=== PATIENT | male | born 1960 | race Caucasian/White ===

== ENCOUNTER 2022-05-04 23:18 | Observation (INO) | payer BC ==
[2022-05-05 00:22] VITALS: BMI 24.9
[2022-05-05] MEDS ORDERED: Nitroglycerin 0.4 MG TAB (25 Tab Bottle) SL PRN (00:50)
[2022-05-05] MEDS ORDERED: Ondansetron PF 4 MG/2 ML Vial IVP PRN (00:50)
[2022-05-05] MEDS ORDERED: Ondansetron ODT 4 MG TAB PO PRN (00:50)
[2022-05-05] MEDS ORDERED: Acetaminophen 325 MG TAB PO PRN (00:50)
[2022-05-05] MEDS ORDERED: Multivit, Therapeutic 1 TAB PO SCH (01:00)
[2022-05-05] MEDS ORDERED: Folic Acid 1 MG TAB PO SCH (01:00)
[2022-05-05] MEDS ORDERED: Thiamine 100 MG TAB PO SCH ×2 (01:15→21:00)
[2022-05-05 02:13] LABS: Troponin I 0.014 ng/mL (< 0.028)
[2022-05-05 03:22] LABS: Cardiac Risk 2.1 (Less than 4.5)
[2022-05-05 05:22] LABS: Troponin I 0.013 ng/mL (< 0.028)
[2022-05-05] MEDS ORDERED: ADENOSINE 60 MG/20 ML VIAL ONE (07:29)
[2022-05-05] MEDS ORDERED: COLESEVELAM HCL 625 MG PO SCH (09:00)
[2022-05-05] MEDS: Allopurinol 300 MG TAB PO SCH (12:18)
[2022-05-05] MEDS: Folic Acid 1 MG TAB PO SCH (12:18)
[2022-05-05] MEDS: Multivit, Therapeutic 1 TAB PO SCH (12:18)
[2022-05-05] MEDS: Tamsulosin HCl 0.4 MG CAP PO SCH (12:18)
[2022-05-05] MEDS: Lisinopril 20 MG TAB PO SCH (12:18)
[2022-05-05] MEDS ORDERED: Communication Order-Pharmacy FS SCH (17:45)
[2022-05-06] MEDS ORDERED: Iopamidol 370 76% 100 ML VIAL ONE (07:31)
[2022-05-06 07:38] LABS: Hemoglobin 14.4 g/dL (14.0-18.0); Mean Corpuscular HGB CONC 34.8 g/dL (32.0-36.0); Mean Corpuscular Hemoglobin 34.3 pg (27.0-31.0); Mean Corpuscular Volume 98.6 fL (78.0-98.0); Platelet Count 128 thou/uL (130-400); Red Blood Cell (RBC) Count 4.19 mill/uL (4.70-6.10); White Blood Cell (WBC) Count 5.3 thou/uL (4.8-10.8)
[2022-05-06] MEDS: Lisinopril 20 MG TAB PO SCH (07:45)
[2022-05-06] MEDS: Multivit, Therapeutic 1 TAB PO SCH (07:47)
[2022-05-06] MEDS: Folic Acid 1 MG TAB PO SCH (07:47)
[2022-05-06] MEDS: Tamsulosin HCl 0.4 MG CAP PO SCH (07:47)
[2022-05-06] MEDS: Allopurinol 300 MG TAB PO SCH (07:48)
[2022-05-06] MEDS ORDERED: Verapamil 5 MG/2 ML VIAL ONE (07:50)
[2022-05-06] MEDS ORDERED: Fentanyl 100 MCG/2 ML VIAL ONE (07:50)
[2022-05-06] MEDS ORDERED: Nitroglycerin 100MG/250ML BOT 250 ML ONE (07:50)
[2022-05-06] MEDS ORDERED: Midazolam HCl 2 mg/2 ml Vial ONE (07:50)
[2022-05-06] MEDS ORDERED: Adenosine 6 MG/2 ML VIAL ONE (07:50)
[2022-05-06] MEDS ORDERED: Lidocaine 1% PF 5 ML VIAL ONE (07:50)
[2022-05-06] MEDS ORDERED: Heparin 10,000 UNITS/ 10 ML VIAL ONE (07:51)
[2022-05-06 07:56] LABS: Anion Gap 14 mmol/L (10-20); BUN (Urea Nitrogen) 6 mg/dL (8.4-25.7); Calc. Creatinine Clearance 125 mL/min (70-130); Carbon Dioxide 27 mmol/L (22-29); Chloride 99 mmol/L (98-107); Estimated GFR 105; Glucose 86 mg/dL (70-105); Potassium 3.9 mmol/L (3.5-5.1); Sodium 136 mmol/L (136-145)
[2022-05-06] MEDS ORDERED: Carvedilol 25 MG TAB PO SCH (08:00)
[2022-05-06] MEDS ORDERED: Acetaminophen/Codeine 30-300mg Tablet PO PRN ×2 (09:17)
[2022-05-06] MEDS ORDERED: Nitroglycerin 0.4 MG TAB (25 Tab Bottle) SL PRN (09:17)
[2022-05-06] MEDS ORDERED: Sodium Chloride 0.9% 200 ML IV PRN (09:17)
[2022-05-06] MEDS ORDERED: Sodium Chloride 0.9% 1,000 ML IV SCH (09:30)
[2022-05-06 12:33] VITALS: BP 124/79; TEMP 98.4
== END 2022-05-06 16:27 | disposition home or self-care (01) ==
LOC: 2SW 05-05 00:04
PROVIDERS: ADMIT Student in an Organized Health Care Education/Training Program; ATTEND Student in an Organized Health Care Education/Training Program
PROC: 4A023N7 Measurement of Cardiac Sampling and Pressure, Left Heart, Percutaneous Approach (ICD-10-PCS; principal; 2022-05-06)
PROC: B2111ZZ Fluoroscopy of Multiple Coronary Arteries using Low Osmolar Contrast (ICD-10-PCS; 2022-05-06)
DX: I42.8 Other cardiomyopathies (principal); I25.10 Atherosclerotic heart disease of native coronary artery without angina pectoris; I08.3 Combined rheumatic disorders of mitral, aortic and tricuspid valves; F10.10 Alcohol abuse, uncomplicated; F17.220 Nicotine dependence, chewing tobacco, uncomplicated; I10 Essential (primary) hypertension; E78.5 Hyperlipidemia, unspecified; M10.9 Gout, unspecified; M19.90 Unspecified osteoarthritis, unspecified site; K21.9 Gastro-esophageal reflux disease without esophagitis; N40.0 Benign prostatic hyperplasia without lower urinary tract symptoms; Z79.1 Long term (current) use of non-steroidal anti-inflammatories (NSAID); Z79.899 Other long term (current) drug therapy; Z20.822 Contact with and (suspected) exposure to COVID-19
CPT/HCPCS: 36415; 36416; 78452; 80048; 80061; 84484; 85027; 90471; 90732; 93017; 93306; 93458; 94760; 99152; 99153; A9500; C1769; G0009; G0378; J0153; J1642; J1644; J2250; J3010; J7050; Q9967; U0003; U0005

== ENCOUNTER 2024-07-31 19:32 | Emergency (ER) | payer OTHER ==
[~2024-07-31 19:32] MED LIST: Iopamidol 370 76% 100 ML VIAL ONE
[2024-07-31 20:17] LABS: #Basophils 0.06 10x3/uL (0.0-0.2); %Lymphocytes 37.8 % (21.0-51.0); %Monocytes 12.2 % (0.0-10.0); %Neutrophils 45.2 % (42.0-75.0); Hematocrit 35.5 % (42.0-52.0); Hemoglobin 12.1 g/dL (14.0-18.0); Mean Corpuscular HGB CONC 34.1 g/dL (32.0-36.0); Mean Corpuscular Hemoglobin 33.1 pg (27.0-31.0); Mean Platelet Volume 8.5 fL (7.4-10.4); Platelet Count 140 10x3/uL (130-400); RBC Distribution Width 14.7 % (11.5-14.5); Red Blood Cell (RBC) Count 3.66 mill/uL (4.70-6.10)
[2024-07-31 20:34] LABS: AST (SGOT) 47 U/L (5-34); Albumin 3.6 g/dL (3.4-4.8); Alkaline Phosphatase 53 U/L (40-110); Anion Gap 16 mmol/L (10-20); BUN (Urea Nitrogen) 7 mg/dL (8.4-25.7); Bilirubin, Total 0.6 mg/dL (0.2-1.2); Calc. Creatinine Clearance 0 mL/min (70-130); Calcium 8.7 mg/dL (7.8-10.44); Carbon Dioxide 19 mmol/L (23-31); Chloride 100 mmol/L (98-107); Estimated GFR 108; Globulin 2.9 g/dL (2.4-3.5); Glucose 82 mg/dL (80-115); Potassium 3.8 mmol/L (3.5-5.1); Protein, Total 6.5 g/dL (5.8-8.1); Sodium 131 mmol/L (136-145)
[2024-07-31 20:35] LABS: ALT (SGPT) 20 U/L (8-55); Lipase 43 U/L (8-78)
== END 2024-07-31 23:22 | disposition home or self-care (01) ==
LOC: ERS 19:32
DX: S20.211A Contusion of right front wall of thorax, initial encounter (principal); K76.0 Fatty (change of) liver, not elsewhere classified; Z48.00 Encounter for change or removal of nonsurgical wound dressing; I10 Essential (primary) hypertension; F17.220 Nicotine dependence, chewing tobacco, uncomplicated; W19.XXXA Unspecified fall, initial encounter; Z55.6 Problems related to health literacy
CPT/HCPCS: 36415; 71045; 74177; 80053; 83605; 83690; 85025; 93005; Q9967

== ENCOUNTER 2025-05-05 11:20 | Outpatient (CLI) | payer OTHER | END 2025-05-05 11:21 | disposition home or self-care (01) | LOC: CT 11:20 | PROVIDERS: ATTEND Orthopaedic Surgery | DX: M12.812 Other specific arthropathies, not elsewhere classified, left shoulder (principal) ==

== ENCOUNTER 2025-06-29 20:16 | Emergency (ER) | payer OTHER ==
[2025-06-29] MEDS ORDERED: Ketorolac Tromethamine 30 MG (1 mL) VIAL ONE (23:37)
[2025-06-29] MEDS ORDERED: diphenhydrAMINE 50 MG/ML VIAL ONE (23:37)
[2025-06-29] MEDS ORDERED: Metoclopramide HCl 10 MG (2 mL) VIAL ONE (23:37)
== END 2025-06-30 00:50 | disposition home or self-care (01) ==
LOC: ERS 20:16
DX: J06.9 Acute upper respiratory infection, unspecified (principal); R51.9 Headache, unspecified; I10 Essential (primary) hypertension; F17.220 Nicotine dependence, chewing tobacco, uncomplicated
CPT/HCPCS: 87428; 96374; 96375; J1200; J1885; J2765; J2919

== ENCOUNTER 2025-07-04 14:37 | Inpatient (IN) | payer OTHER ==
[2025-07-04 15:31] LABS: ALT (SGPT) 25 U/L (Less than 45); AST (SGOT) 55 U/L (11-34); Albumin 3.7 g/dL (3.1-4.5); Alkaline Phosphatase 76 U/L (40-110); Anion Gap 14 mmol/L (10-20); BUN (Urea Nitrogen) 9 mg/dL (8.4-25.7); Bilirubin, Total 0.5 mg/dL (0.3-1.2); Calc. Creatinine Clearance 0 mL/min (70-130); Calcium 8.4 mg/dL (7.8-10.44); Carbon Dioxide 23 mmol/L (23-31); Chloride 95 mmol/L (98-107); Globulin 2.7 g/dL (2.4-3.5); Glucose 107 mg/dL (80-115); Magnesium 1.3 mg/dL (1.6-2.6); Potassium 4.1 mmol/L (3.5-5.1); Sodium 128 mmol/L (136-145)
[2025-07-04 15:32] LABS: #Basophils 0.04 10x3/uL (0.0-0.2); #Eosinophils 0.12 10x3/uL (0.0-0.7); #Monocytes 0.77 10x3/uL (0.11-0.59); #Neutrophils 1.93 10x3/uL (1.40-6.50); %Basophils 0.8 % (0.0-1.0); %Eosinophils 2.4 % (0.0-10.0); %Lymphocytes 43.1 % (21.0-51.0); %Monocytes 15.2 % (0.0-10.0); %Neutrophils 38.1 % (42.0-75.0); Hematocrit 38.0 % (42.0-52.0); Hemoglobin 13.4 g/dL (14.0-18.0); Mean Corpuscular Hemoglobin 31.8 pg (27.0-31.0); Mean Corpuscular Volume 90.0 fL (78.0-98.0); Platelet Count 127 10x3/uL (130-400); Red Blood Cell (RBC) Count 4.22 mill/uL (4.70-6.10); White Blood Cell (WBC) Count 5.06 10x3/uL (4.8-10.8)
[2025-07-04 15:58] LABS: Anisocytosis SLIGHT = 6-15 cells HPF (0-5); Macrocytosis MODERATE=16-30 cells HPF (0-5); Ovalocytes SLIGHT = 2-5 cells HPF (0-1); Platelet Adequacy Comment Platelets Normal; Polychromasia SLIGHT = 2-3 cells HPF (0-2)
[2025-07-04] MEDS ORDERED: Magnesium 2 GM/50 ML BAG (IN WATER) ONE (16:03)
[2025-07-04] MEDS ORDERED: Aspirin Chewable 81 MG TAB ONE (16:03)
[2025-07-04] MEDS ORDERED: Nitroglycerin 0.4 MG TAB (25 Tab Bottle) SL PRN (16:50)
[2025-07-04] MEDS ORDERED: Melatonin 3 MG TAB PO PRN (16:54)
[2025-07-04] MEDS ORDERED: Ondansetron PF 4 MG/2 ML Vial IVP PRN (16:54)
[2025-07-04] MEDS ORDERED: Bisacodyl 10 MG SUPP PR PRN (16:54)
[2025-07-04] MEDS ORDERED: Senokot S 8.6-50 MG TAB PO PRN (16:54)
[2025-07-04] MEDS ORDERED: Calcium Carbonate 500 MG ChewTAB PO PRN (16:54)
[2025-07-04] MEDS: Pantoprazole 40 MG DR.TAB PO SCH (18:42)
[2025-07-04] MEDS: Carvedilol 6.25 MG TAB PO SCH (20:53)
[2025-07-04] MEDS: Magnesium 2 GM/50 ML(in water) 2 GM in Premix 1 BAG IVPB SCH (20:56)
[2025-07-05 06:23] LABS: #Basophils 0.04 10x3/uL (0.0-0.2); #Eosinophils 0.17 10x3/uL (0.0-0.7); #Monocytes 0.74 10x3/uL (0.11-0.59); #Neutrophils 1.87 10x3/uL (1.40-6.50); %Basophils 0.9 % (0.0-1.0); %Eosinophils 4.0 % (0.0-10.0); %Lymphocytes 32.9 % (21.0-51.0); %Monocytes 17.5 % (0.0-10.0); %Neutrophils 44.2 % (42.0-75.0); Hematocrit 40.3 % (42.0-52.0); Hemoglobin 13.6 g/dL (14.0-18.0); Mean Corpuscular Hemoglobin 31.1 pg (27.0-31.0); Mean Corpuscular Volume 92.0 fL (78.0-98.0); Platelet Count 118 10x3/uL (130-400); Red Blood Cell (RBC) Count 4.38 mill/uL (4.70-6.10); White Blood Cell (WBC) Count 4.23 10x3/uL (4.8-10.8)
[2025-07-05 06:26] LABS: Anion Gap 10 mmol/L (10-20); BUN (Urea Nitrogen) 8 mg/dL (8.4-25.7); Calc. Creatinine Clearance 118 mL/min (70-130); Calcium 8.6 mg/dL (7.8-10.44); Carbon Dioxide 26 mmol/L (23-31); Cardiac Risk 2.7 (Less than 4.5); Chloride 102 mmol/L (98-107); Cholesterol 171 mg/dl (< 200 Desired); Glucose 89 mg/dL (80-115); HDL Cholesterol 63 mg/dL (>60 Neg Risk); LDL Cholesterol, Calculated 80 mg/dL; Magnesium 1.8 mg/dL (1.6-2.6); Potassium 4.2 mmol/L (3.5-5.1); Sodium 134 mmol/L (136-145); Triglycerides 142 mg/dL (Less than 150)
[2025-07-05] MEDS: Enoxaparin 40 MG (0.4 mL) SYRINGE SC SCH (09:01)
[2025-07-05] MEDS: Aspirin Chewable 81 MG TAB PO SCH (09:02)
[2025-07-05] MEDS: Multivit, Therapeutic 1 TAB PO SCH (09:02)
[2025-07-05] MEDS: Pantoprazole 40 MG DR.TAB PO SCH (09:02)
[2025-07-05] MEDS: Folic Acid 1 MG TAB PO SCH (09:02)
[2025-07-05] MEDS: Carvedilol 25 MG TAB PO SCH (09:02)
[2025-07-05] MEDS: Magnesium 2 GM/50 ML(in water) 2 GM in Premix 1 BAG IVPB SCH (09:02)
[2025-07-05 18:08] VITALS: BMI 25.2
[2025-07-05] MEDS: hydrALAZINE 20 MG/ML VIAL SLOW IVP PRN (18:24)
[2025-07-06 05:04] LABS: #Basophils Less than 0.03 10x3/uL (0.0-0.2); #Eosinophils 0.20 10x3/uL (0.0-0.7); #Monocytes 0.76 10x3/uL (0.11-0.59); #Neutrophils 1.81 10x3/uL (1.40-6.50); %Basophils 0.5 % (0.0-1.0); %Eosinophils 4.5 % (0.0-10.0); %Lymphocytes 36.3 % (21.0-51.0); %Monocytes 17.2 % (0.0-10.0); %Neutrophils 40.8 % (42.0-75.0); Hematocrit 35.9 % (42.0-52.0); Hemoglobin 12.3 g/dL (14.0-18.0); Mean Corpuscular Hemoglobin 31.5 pg (27.0-31.0); Mean Corpuscular Volume 91.8 fL (78.0-98.0); Platelet Count 110 10x3/uL (130-400); Red Blood Cell (RBC) Count 3.91 mill/uL (4.70-6.10); White Blood Cell (WBC) Count 4.43 10x3/uL (4.8-10.8)
[2025-07-06 05:16] LABS: ALT (SGPT) 19 U/L (Less than 45); AST (SGOT) 38 U/L (11-34); Albumin 3.1 g/dL (3.1-4.5); Alkaline Phosphatase 75 U/L (40-110); Anion Gap 10 mmol/L (10-20); BUN (Urea Nitrogen) 7 mg/dL (8.4-25.7); Bilirubin, Total 1.0 mg/dL (0.3-1.2); Calc. Creatinine Clearance 126 mL/min (70-130); Calcium 8.3 mg/dL (7.8-10.44); Carbon Dioxide 26 mmol/L (23-31); Chloride 100 mmol/L (98-107); Globulin 2.6 g/dL (2.4-3.5); Glucose 95 mg/dL (80-115); Potassium 3.6 mmol/L (3.5-5.1); Sodium 132 mmol/L (136-145)
[2025-07-06] MEDS ORDERED: CATH FS SCH (09:00)
[2025-07-06] MEDS: Allopurinol 300 MG TAB PO SCH (09:54)
[2025-07-06] MEDS ORDERED: Adenosine 6 mg (2 mL) VIAL ONE (10:46)
[2025-07-06] MEDS ORDERED: Heparin 10,000 UNITS/ 10 ML VIAL ONE (10:47)
[2025-07-06] MEDS ORDERED: Lidocaine 1% (PF) 30 ML VIAL ONE (10:47)
[2025-07-06] MEDS ORDERED: PHENYLEPHRINE-NS 100 MCG/ML 10 ML SYRINGE ONE (10:47)
[2025-07-06] MEDS ORDERED: Nitroglycerin 50 MG/250 ML BOT 0 ML ONE (10:47)
[2025-07-06] MEDS ORDERED: Iopamidol 370 76% 100 ML VIAL ONE (11:29)
[2025-07-06] MEDS: Acetaminophen 325 MG TAB PO PRN (20:57)
[2025-07-07 05:25] LABS: Anion Gap 11 mmol/L (10-20); BUN (Urea Nitrogen) 5 mg/dL (8.4-25.7); Calc. Creatinine Clearance 116 mL/min (70-130); Calcium 8.5 mg/dL (7.8-10.44); Carbon Dioxide 24 mmol/L (23-31); Chloride 102 mmol/L (98-107); Glucose 89 mg/dL (80-115); Potassium 4.1 mmol/L (3.5-5.1); Sodium 133 mmol/L (136-145)
[2025-07-07] MEDS: PNEUMOC 20-VAL CONJ-DIP CRM/PF 0.5 ML SYRINGE IM ONE (07:52)
[2025-07-07 08:01] VITALS: BP 139/88; TEMP 98
[2025-07-07] MEDS: Thiamine 100 MG TAB PO SCH (10:02)
== END 2025-07-07 10:30 | disposition home or self-care (01) | DRG 287 ==
LOC: ERS 14:37 → 2NO 16:36 → OBSVTOIN 07-05 23:51
PROVIDERS: ADMIT Family Medicine; ATTEND Student in an Organized Health Care Education/Training Program
PROC: HZ2ZZZZ Detoxification Services for Substance Abuse Treatment (ICD-10-PCS; principal; 2025-07-05)
PROC: 4A023N8 Measurement of Cardiac Sampling and Pressure, Bilateral, Percutaneous Approach (ICD-10-PCS; 2025-07-06)
PROC: B2111ZZ Fluoroscopy of Multiple Coronary Arteries using Low Osmolar Contrast (ICD-10-PCS; 2025-07-06)
DX: I35.0 Nonrheumatic aortic (valve) stenosis (principal); E87.1 Hypo-osmolality and hyponatremia; R07.9 Chest pain, unspecified; K21.9 Gastro-esophageal reflux disease without esophagitis; E78.5 Hyperlipidemia, unspecified; I10 Essential (primary) hypertension; M10.9 Gout, unspecified; F10.10 Alcohol abuse, uncomplicated; F17.220 Nicotine dependence, chewing tobacco, uncomplicated; E86.9 Volume depletion, unspecified; Z96.651 Presence of right artificial knee joint; N40.0 Benign prostatic hyperplasia without lower urinary tract symptoms; E83.42 Hypomagnesemia; Z90.49 Acquired absence of other specified parts of digestive tract; Z98.890 Other specified postprocedural states; Z79.899 Other long term (current) drug therapy; Z79.01 Long term (current) use of anticoagulants; Z79.82 Long term (current) use of aspirin
CPT/HCPCS: 36415; 71045; 80048; 80053; 80061; 80307; 83735; 84100; 84484; 85025; 93005; 93460; 94760; 96365; 96372; 96375; 96376; 99152; 99153; C1769; C1894; G0378; J0153; J0360; J0461; J1644; J1650; J2250; J3010; J3411; J3475; J7030; Q9967